=== PATIENT | female | born 1950 | race Two or more races ===

== ENCOUNTER 2022-03-30 08:02 | Emergency (ER) | payer OTHER ==
[~2022-03-30] VITALS: Ht 157.5 cm; Wt 78.5 kg
[~2022-03-30 08:02] MED LIST: ATACAND16 MG; COZAAR50 MG; LEXAPRO5 MG; PROTONIX IV40 MG; TOPROL XL25 MG
[2022-03-30] MEDS ORDERED: SYNTHROID50 MCG (08:25)
[2022-03-30] MEDS ORDERED: ATACAND HCT 321 EAC1 (08:26)
[2022-03-30] MEDS ORDERED: METRONIDAZOLE500 MG PO (14:54)
== END 2022-03-30 16:55 | disposition home or self-care (01) ==
LOC: ER 08:02
DX: K57.32 Diverticulitis of large intestine without perforation or abscess without bleeding (principal); K76.0 Fatty (change of) liver, not elsewhere classified; I10 Essential (primary) hypertension; Z20.822 Contact with and (suspected) exposure to COVID-19

== ENCOUNTER → 2022-05-29 | Emergency (ER) | payer OTHER ==
[~2022-05-29] VITALS: Ht 157.5 cm; Wt 78.0 kg
[~2022-05-29] MED LIST changes: +ATACAND HCT 321 EAC1; +HYOSCYAMINE0.125 M2; +METRONIDAZOLE500 MG PO; +SYNTHROID50 MCG
== END | disposition home or self-care (01) ==
LOC: ER 12:48
DX: R10.9 Unspecified abdominal pain (principal); K52.9 Noninfective gastroenteritis and colitis, unspecified; K57.90 Diverticulosis of intestine, part unspecified, without perforation or abscess without bleeding; I10 Essential (primary) hypertension

== ENCOUNTER 2022-12-16 15:18 | Emergency (ER) | payer OTHER ==
[~2022-12-16] VITALS: Ht 157.5 cm; Wt 73.9 kg
[2022-12-16] MEDS ORDERED: CIPRO500 MG PO (22:00)
[2022-12-16] MEDS ORDERED: METRONIDAZOLE500 MG PO (22:00)
[2022-12-16] MEDS ORDERED: OMEPRAZOLE MAGN20 MG PO (22:00)
== END 2022-12-16 22:52 | disposition home or self-care (01) ==
LOC: ER 15:18
DX: K57.32 Diverticulitis of large intestine without perforation or abscess without bleeding (principal); I10 Essential (primary) hypertension; E03.9 Hypothyroidism, unspecified

== ENCOUNTER 2022-12-18 08:58 | Inpatient (IN) | payer OTHER ==
[~2022-12-18] VITALS: Ht 157.5 cm; Wt 73.9 kg
[~2022-12-18 08:58] MED LIST changes: +CIPRO500 MG PO; +OMEPRAZOLE MAGN20 MG PO
[2022-12-22] MEDS ORDERED: ATORVASTATIN CA20 MG (11:27)
[2022-12-22] MEDS ORDERED: FAMOTIDINE20 MG (11:27)
== END 2022-12-25 10:58 | disposition home or self-care (01) | DRG 690 ==
LOC: ER 08:58 → MEDI 21:11 → MEDJ 21:11
PROVIDERS: ADMIT Internal Medicine; ATTEND Internal Medicine
PROC: 05HY33Z Insertion of Infusion Device into Upper Vein, Percutaneous Approach (ICD-10-PCS; 2022-12-20)
PROC: BW21YZZ Computerized Tomography (CT Scan) of Abdomen and Pelvis using Other Contrast (ICD-10-PCS; principal; 2022-12-25)
DX: N39.0 Urinary tract infection, site not specified (principal); N82.3 Fistula of vagina to large intestine; K57.32 Diverticulitis of large intestine without perforation or abscess without bleeding; B96.89 Other specified bacterial agents as the cause of diseases classified elsewhere

== ENCOUNTER 2023-02-08 10:00 | Inpatient (IN) | payer OTHER ==
[~2023-02-08] VITALS: Ht 157.5 cm; Wt 70.3 kg
[~2023-02-08 10:00] MED LIST changes: +ATORVASTATIN CA20 MG; +FAMOTIDINE20 MG
[2023-02-17] MEDS ORDERED: HYOSCYAMINE0.125 M1 SL (07:48)
== END 2023-02-17 13:01 | disposition home or self-care (01) | DRG 330 ==
LOC: SURH 02-12 05:45 → O/R 02-12 05:45 → SURH 02-12 10:00
PROVIDERS: ADMIT Surgery; ATTEND Surgery
PROC: 0DBP4ZZ Excision of Rectum, Percutaneous Endoscopic Approach (ICD-10-PCS; 2023-02-12)
PROC: 0DJD8ZZ Inspection of Lower Intestinal Tract, Via Natural or Artificial Opening Endoscopic (ICD-10-PCS; 2023-02-12)
PROC: 0DNW4ZZ Release Peritoneum, Percutaneous Endoscopic Approach (ICD-10-PCS; 2023-02-12)
PROC: 0DNN4ZZ Release Sigmoid Colon, Percutaneous Endoscopic Approach (ICD-10-PCS; 2023-02-12)
PROC: 0DTN4ZZ Resection of Sigmoid Colon, Percutaneous Endoscopic Approach (ICD-10-PCS; principal; 2023-02-12 13:45)
DX: K57.32 Diverticulitis of large intestine without perforation or abscess without bleeding (principal); N82.3 Fistula of vagina to large intestine